=== PATIENT | male | born 1975 | race Caucasian/White ===

== ENCOUNTER 2020-07-15 02:19 | Inpatient (IN) | payer OTHER ==
[~2020-07-15] VITALS: Ht 177.8 cm; Wt 97.5 kg
[2020-07-15 04:29] LABS: Basophils # (auto) 0 10 ^3/uL (0-0.2); Basophils % (auto) 0.1 % (0.0-2.0); Eosinophils # (auto) 0 10 ^3/uL (0-0.8); Eosinophils % (auto) 0.1 % (0.0-7.0); Hematocrit 43.8 % (41.0-53.0); Hemoglobin 14.8 g/dL (13.5-17.5); Lymphocytes # (auto) 0.6 10 ^3/uL (0.4-5.4); Lymphocytes % (auto) 4.2 % (10.0-50.0); Mean Corpuscular Hemoglobin 28.3 pg (28.0-32.0); Mean Corpuscular Hgb Conc. 33.9 g/dL (32.0-36.0); Mean Corpuscular Volume 83.6 fL (80.0-100.0); Monocytes # (auto) 0.5 10 ^3/uL (0-1.3); Monocytes % (auto) 3.3 % (0.0-12.0); Neutrophils # (auto) 13.4 10 ^3/uL (1.6-8.6); Neutrophils % (auto) 92.3 % (37.0-80.0); Nucleated Red Blood Cells % 0.1 %; Platelet Count (auto) 439 10^3/uL (140-450); Red Blood Cells 5.24 10^6/uL (4.5-5.90); Red Cell Distribution Width 13.4 % (11.8-14.3); White Blood Cell 14.5 10^3/uL (4.4-10.8)
[2020-07-15 04:52] LABS: Albumin 2.8 g/dL (3.4-5.0); Calcium 9.1 mg/dL (8.5-10.1)
[2020-07-15 04:55] LABS: INR 1.1 (0.9-1.15); Partial Thromboplastin Time 27.8 sec (23.0-31.2); Potassium 2.9 mmol/L (3.5-5.1)
[2020-07-15 04:57] LABS: BUN/Creatinine Ratio 14.3; Bilirubin, Total 0.8 mg/dL (0.2-1.0); Total Protein 7.7 g/dL (6.4-8.2)
[2020-07-15] MEDS ORDERED: DOXYCYCLINE 100MG/250ML 250 ML IV ONE (07:45)
[2020-07-15] MEDS ORDERED: DexAMETHasone SOD PHOS 10MG/1ML VIAL INJ IV ONE (07:45)
[2020-07-15] MEDS ORDERED: POTASSIUM CHL 20MEQ/100ML 100 ML IV SCH (07:45)
[2020-07-15] MEDS ORDERED: POTASSIUM EFFERVESENT TAB 25 MEQ PO ONE (08:15)
[2020-07-15] MEDS ORDERED: MORPHINE SULF INJ 2 MG/ML SYRINGE 1ML IV PRN (09:00)
[2020-07-15] MEDS ORDERED: ACETAMINOPHEN 500 MG TAB PO PRN (09:00)
[2020-07-15] MEDS ORDERED: REMDESIVIR PER PHARMACY 0 ML IV SCH (09:00)
[2020-07-15] MEDS ORDERED: ALBUTEROL SULF HFA 90MCG INH 200DOSE IN PRN (09:00)
[2020-07-15] MEDS ORDERED: NITROGLYCERIN 0.4 MG SL TAB SL PRN (09:00)
[2020-07-15] MEDS ORDERED: DEXTROSE (50%) 50ML SYRG IV PRN (09:30)
[2020-07-15] MEDS ORDERED: traMADol HCL 50 MG TAB PO PRN (09:30)
[2020-07-15] MEDS ORDERED: PROMETHAZINE HCL 25 MG/ML 1ML IV PRN (09:30)
[2020-07-15] MEDS ORDERED: levoFLOXacin 500MG 100 ML IV SCH (10:00)
[2020-07-15] MEDS ORDERED: ENOXAPARIN SOD 40 MG/0.4 ML SYRINGE SC SCH (10:00)
[2020-07-15] MEDS ORDERED: ASCORBIC ACID 1,000 MG TAB PO SCH (10:00)
[2020-07-15] MEDS ORDERED: CHOLECALCIFEROL (VITD3) 2,000 UNIT CAP PO SCH (10:00)
[2020-07-15] MEDS ORDERED: ZINC SULFATE 220mg CAP or TAB PO SCH (10:00)
[2020-07-15] MEDS ORDERED: DexAMETHasone SOD PHOS 10MG/1ML VIAL INJ IV SCH (10:00)
[2020-07-15] MEDS: BUDESONIDE (INHALATION) 180 MCG IH IN SCH ×2 (10:00→19:16)
[2020-07-15] MEDS ORDERED: AZIT250T8 PO (11:26)
[2020-07-15] MEDS: ACCU-CHEK COMFORT CURVE STRIP VI SCH ×2 (11:34→17:29)
[2020-07-15] MEDS ORDERED: REMDESIVIR 200 MG in NS 210ml LOADING DOSE ADULT IV ONE (17:00)
[2020-07-15 20:02] VITALS: BP 114/69
[2020-07-16] MEDS ORDERED: REMDESIVIR 100 MG in SODIUM CHL 0.9% 250 ML IV SCH (15:00)
== END 2020-07-15 22:14 | disposition home or self-care (01) | DRG 177 ==
LOC: ER 02:25 → TELE 02:26
PROVIDERS: ADMIT Internal Medicine; ATTEND Internal Medicine
PROC: XW033E5 Introduction of Remdesivir Anti-infective into Peripheral Vein, Percutaneous Approach, New Technology Group 5 (ICD-10-PCS; principal; 2020-07-15)
DX: U07.1 COVID-19 (principal); J12.89 Other viral pneumonia; E66.9 Obesity, unspecified; E87.6 Hypokalemia; J45.909 Unspecified asthma, uncomplicated; R09.02 Hypoxemia; R06.03 Acute respiratory distress; R73.9 Hyperglycemia, unspecified; Z68.30 Body mass index [BMI] 30.0-30.9, adult
CPT/HCPCS: 36415; 71045; 80053; 82962; 83036; 83880; 85025; 85379; 85610; 85730; 94640; 96365; 96366; 96372; G0378; J1100; J1956; J3490

== ENCOUNTER 2020-09-11 08:43 | Inpatient (IN) | payer OTHER ==
[~2020-09-11] VITALS: Ht 177.8 cm; Wt 93.2 kg
[~2020-09-11 08:43] MED LIST: AZIT250T8 PO
[2020-09-11 09:21] LABS: Urine Bacteria NONE SEEN /hpf (None Seen); Urine Blood Negative /uL (Negative); Urine Specific Gravity 1.025 (1.001-1.035); Urine WBC <1 /hpf (0 - 3)
[2020-09-11] MEDS ORDERED: SODIUM CHLORIDE 0.9% 1,000 ML IV ONE ×2 (09:45)
[2020-09-11] MEDS ORDERED: metroNIDAZOLE 500MG/100ML 100 ML IV ONE (10:00)
[2020-09-11] MEDS ORDERED: cefTRIAXone 1GM/50ML D5W 50 ML IV ONE (10:00)
[2020-09-11 10:20] LABS: Basophils # (auto) 0 10 ^3/uL (0-0.2); Basophils % (auto) 0.6 % (0.0-2.0); Eosinophils # (auto) 0.2 10 ^3/uL (0-0.8); Eosinophils % (auto) 3.4 % (0.0-7.0); Hematocrit 41.5 % (41.0-53.0); Hemoglobin 14.3 g/dL (13.5-17.5); Lymphocytes # (auto) 1.5 10 ^3/uL (0.4-5.4); Lymphocytes % (auto) 25.1 % (10.0-50.0); Mean Corpuscular Hemoglobin 28.9 pg (28.0-32.0); Mean Corpuscular Hgb Conc. 34.4 g/dL (32.0-36.0); Monocytes # (auto) 0.5 10 ^3/uL (0-1.3); Neutrophils # (auto) 3.8 10 ^3/uL (1.6-8.6); Neutrophils % (auto) 62.9 % (37.0-80.0); Nucleated Red Blood Cells % 0.1 %; Platelet Count (auto) 368 10^3/uL (140-450); Red Blood Cells 4.94 10^6/uL (4.5-5.90); Red Cell Distribution Width 14.5 % (11.8-14.3); White Blood Cell 6.1 10^3/uL (4.4-10.8)
[2020-09-11 13:01] LABS: Potassium 4.1 mmol/L (3.5-5.1)
[2020-09-11 13:12] LABS: Albumin 3.8 g/dL (3.4-5.0); Calcium 9.6 mg/dL (8.5-10.1)
[2020-09-11 13:14] LABS: Bilirubin, Total 0.6 mg/dL (0.2-1.0)
[2020-09-11] MEDS ORDERED: ONDANSETRON HCL 4 MG/2 ML VIAL IV PRN (15:45)
[2020-09-11] MEDS ORDERED: NITROGLYCERIN 0.4 MG SL TAB SL PRN (15:45)
[2020-09-11] MEDS: SODIUM CHLORIDE 0.9% 1,000 ML IV SCH (15:45)
[2020-09-11] MEDS ORDERED: HYDROmorphone HCL 2 MG/ML VL IV PRN (15:45)
[2020-09-11] MEDS ORDERED: MORPHINE SULF INJ 2 MG/ML SYRINGE 1ML IV PRN (15:45)
[2020-09-11] MEDS ORDERED: VANCOMYCIN PER PHARMACY 0 MG IV SCH (15:45)
[2020-09-11] MEDS ORDERED: VANCOMYCIN 1GM/250ML 250 ML IV SCH (18:00)
[2020-09-11] MEDS: PIPERACILLIN-TAZOB 3.375GM 100 ML IV SCH (18:42)
[2020-09-12] MEDS: SODIUM CHLORIDE 0.9% 1,000 ML IV SCH ×2 (01:45→11:50)
[2020-09-12] MEDS: VANCOMYCIN 1GM/250ML 250 ML IV SCH ×3 (06:00→23:17)
[2020-09-12] MEDS: PIPERACILLIN-TAZOB 3.375GM 100 ML IV SCH ×4 (06:00→18:37)
[2020-09-12 13:00] VITALS: BP 122/76
[2020-09-12 13:27] LABS: Basophils # (auto) 0 10 ^3/uL (0-0.2); Basophils % (auto) 0.4 % (0.0-2.0); Eosinophils # (auto) 0.3 10 ^3/uL (0-0.8); Eosinophils % (auto) 3.8 % (0.0-7.0); Hematocrit 40.5 % (41.0-53.0); Hemoglobin 13.6 g/dL (13.5-17.5); Lymphocytes # (auto) 1.1 10 ^3/uL (0.4-5.4); Lymphocytes % (auto) 13.5 % (10.0-50.0); Mean Corpuscular Hemoglobin 28.6 pg (28.0-32.0); Mean Corpuscular Hgb Conc. 33.7 g/dL (32.0-36.0); Mean Corpuscular Volume 84.9 fL (80.0-100.0); Monocytes # (auto) 0.6 10 ^3/uL (0-1.3); Monocytes % (auto) 7.2 % (0.0-12.0); Neutrophils # (auto) 6.2 10 ^3/uL (1.6-8.6); Neutrophils % (auto) 75.1 % (37.0-80.0); Platelet Count (auto) 352 10^3/uL (140-450); Red Blood Cells 4.77 10^6/uL (4.5-5.90); Red Cell Distribution Width 14.4 % (11.8-14.3); White Blood Cell 8.2 10^3/uL (4.4-10.8)
[2020-09-12 13:36] LABS: Albumin 3.6 g/dL (3.4-5.0); Calcium 8.6 mg/dL (8.5-10.1); Potassium 3.9 mmol/L (3.5-5.1)
[2020-09-12 13:39] LABS: BUN/Creatinine Ratio 10.4; Bilirubin, Total 0.8 mg/dL (0.2-1.0); Total Protein 7.5 g/dL (6.4-8.2)
[2020-09-12] MEDS ORDERED: ALBU108A5 PO (15:10)
[2020-09-12 17:00] VITALS: BP 127/67
[2020-09-12 20:00] VITALS: BP 115/75
[2020-09-12 22:00] VITALS: BP 115/75
[2020-09-13] MEDS: PIPERACILLIN-TAZOB 3.375GM 100 ML IV SCH ×5 (00:16→23:45)
[2020-09-13] MEDS: SODIUM CHLORIDE 0.9% 1,000 ML IV SCH ×3 (04:00→17:45)
[2020-09-13 05:00] VITALS: BP 113/75
[2020-09-13] MEDS: VANCOMYCIN 1GM/250ML 250 ML IV SCH (05:45)
[2020-09-13 09:00] VITALS: BP 116/70
[2020-09-13 09:58] VITALS: BP 116/70
[2020-09-13] MEDS ORDERED: OMNIPAQUE ORAL SOLN 500ml 12mg/ml PO ONE (10:41)
[2020-09-13] MEDS ORDERED: IOHEXOL 300 MG/ML 100ML BOTTLE IJ ONE (10:41)
[2020-09-13] MEDS ORDERED: diphenhdrAMINE HCL 50 MG/1 ML VL IV PRN (11:15)
[2020-09-13 13:00] VITALS: BP 123/81
[2020-09-13 17:20] VITALS: BP 125/83
[2020-09-13 22:00] VITALS: BP 122/72
[2020-09-14 05:00] VITALS: BP 120/68
[2020-09-14] MEDS: PIPERACILLIN-TAZOB 3.375GM 100 ML IV SCH ×3 (05:17→18:09)
[2020-09-14 09:00] VITALS: BP 137/72
[2020-09-14] MEDS ORDERED: TPN PER PHARMACY 0 ML IV SCH (09:30)
[2020-09-14 10:21] LABS: Basophils # (auto) 0 10 ^3/uL (0-0.2); Basophils % (auto) 0.2 % (0.0-2.0); Eosinophils # (auto) 0.3 10 ^3/uL (0-0.8); Eosinophils % (auto) 3.9 % (0.0-7.0); Hematocrit 40.1 % (41.0-53.0); Hemoglobin 13.8 g/dL (13.5-17.5); Lymphocytes # (auto) 1.3 10 ^3/uL (0.4-5.4); Lymphocytes % (auto) 15.1 % (10.0-50.0); Mean Corpuscular Hemoglobin 29.2 pg (28.0-32.0); Mean Corpuscular Hgb Conc. 34.4 g/dL (32.0-36.0); Mean Corpuscular Volume 84.9 fL (80.0-100.0); Monocytes # (auto) 0.7 10 ^3/uL (0-1.3); Neutrophils # (auto) 6.1 10 ^3/uL (1.6-8.6); Neutrophils % (auto) 72.8 % (37.0-80.0); Nucleated Red Blood Cells % 0.1 %; Platelet Count (auto) 354 10^3/uL (140-450); Red Blood Cells 4.72 10^6/uL (4.5-5.90); Red Cell Distribution Width 14.6 % (11.8-14.3); White Blood Cell 8.4 10^3/uL (4.4-10.8)
[2020-09-14 10:34] LABS: INR 1.08 (0.9-1.15); Partial Thromboplastin Time 26.1 sec (23.0-31.2)
[2020-09-14 10:46] LABS: Albumin 3.5 g/dL (3.4-5.0); Calcium 8.9 mg/dL (8.5-10.1); Magnesium 2.3 mg/dL (1.6-2.6); Potassium 3.6 mmol/L (3.5-5.1)
[2020-09-14 10:50] LABS: BUN/Creatinine Ratio 11.9; Bilirubin, Total 0.9 mg/dL (0.2-1.0); Phosphorus 3.3 mg/dL (2.5-4.90); Pre Albumin 23.6 mg/dL (20.0-40.0); Total Protein 7.7 g/dL (6.4-8.2)
[2020-09-14] MEDS: ACCU-CHEK COMFORT CURVE STRIP VI SCH ×2 (12:00→18:00)
[2020-09-14] MEDS ORDERED: DEXTROSE (50%) 50ML SYRG IV SCH (12:00)
[2020-09-14] MEDS: SODIUM CHLORIDE 0.9% 1,000 ML IV SCH ×3 (12:00→13:45)
[2020-09-14] MEDS: InsuLIN REG 1unit/0.01ml Soln (100units/ml) SC SCH ×2 (12:00→18:00)
[2020-09-14 13:00] VITALS: BP 123/68
[2020-09-14 17:00] VITALS: BP 137/77
[2020-09-14] MEDS ORDERED: PPN PER PHARMACY IV NR ×8 (20:00)
[2020-09-14 23:09] VITALS: BP 130/77
[2020-09-15] MEDS: ACCU-CHEK COMFORT CURVE STRIP VI SCH ×3 (00:05→11:35)
[2020-09-15 05:26] VITALS: BP 111/63
[2020-09-15] MEDS: PIPERACILLIN-TAZOB 3.375GM 100 ML IV SCH ×3 (06:15→11:34)
[2020-09-15] MEDS: InsuLIN REG 1unit/0.01ml Soln (100units/ml) SC SCH ×3 (06:15→11:34)
[2020-09-15 06:18] LABS: Basophils # (auto) 0 10 ^3/uL (0-0.2); Basophils % (auto) 0.4 % (0.0-2.0); Eosinophils # (auto) 0.3 10 ^3/uL (0-0.8); Hemoglobin 13.7 g/dL (13.5-17.5); Lymphocytes # (auto) 1.1 10 ^3/uL (0.4-5.4); Lymphocytes % (auto) 13.6 % (10.0-50.0); Mean Corpuscular Hemoglobin 29.3 pg (28.0-32.0); Mean Corpuscular Hgb Conc. 34.2 g/dL (32.0-36.0); Mean Corpuscular Volume 85.7 fL (80.0-100.0); Monocytes # (auto) 0.7 10 ^3/uL (0-1.3); Monocytes % (auto) 8.6 % (0.0-12.0); Neutrophils # (auto) 5.7 10 ^3/uL (1.6-8.6); Neutrophils % (auto) 73.4 % (37.0-80.0); Nucleated Red Blood Cells % 0.1 %; Platelet Count (auto) 316 10^3/uL (140-450); Red Blood Cells 4.67 10^6/uL (4.5-5.90); Red Cell Distribution Width 14.6 % (11.8-14.3); White Blood Cell 7.8 10^3/uL (4.4-10.8)
[2020-09-15 06:29] LABS: Albumin 3.4 g/dL (3.4-5.0); Calcium 8.6 mg/dL (8.5-10.1); Magnesium 2.4 mg/dL (1.6-2.6); Potassium 3.7 mmol/L (3.5-5.1)
[2020-09-15 06:33] LABS: BUN/Creatinine Ratio 15.3; Bilirubin, Total 0.9 mg/dL (0.2-1.0); Phosphorus 2.8 mg/dL (2.5-4.90); Total Protein 7.5 g/dL (6.4-8.2)
[2020-09-15 09:00] VITALS: BP 128/74
[2020-09-15] MEDS: SODIUM CHLORIDE 0.9% 1,000 ML IV SCH (09:45)
[2020-09-15 13:00] VITALS: BP 133/88
[2020-09-15] MEDS ORDERED: LIDOCAINE 1% (LOCAL ANESTH.) PF 5ml SDV ID ONE (14:30)
[2020-09-15 17:00] VITALS: BP 134/72
[2020-09-15 17:29] VITALS: BP 134/72
[2020-09-15] MEDS ORDERED: PPN PER PHARMACY IV NR ×10 (20:00)
[2020-09-15] MEDS ORDERED: SODIUM CHLOR 0.9% PF (SALINE LOCK) 10ML VIAL/SYR IV SCH (22:00)
== END 2020-09-15 20:57 | disposition home health service (06) | DRG 392 ==
LOC: ER 08:43 → OVERFLOW 15:51 → DOU IN ADS 09-12 14:16 → EAST 09-12 15:13 → DOU IN ADS 09-12 23:53 → EAST 09-15 19:17
PROVIDERS: ADMIT Internal Medicine; ATTEND Internal Medicine
PROC: 3E0336Z Introduction of Nutritional Substance into Peripheral Vein, Percutaneous Approach (ICD-10-PCS; 2020-09-14)
PROC: 02HV33Z Insertion of Infusion Device into Superior Vena Cava, Percutaneous Approach (ICD-10-PCS; principal; 2020-09-15)
DX: K57.20 Diverticulitis of large intestine with perforation and abscess without bleeding (principal); Z20.822 Contact with and (suspected) exposure to COVID-19
CPT/HCPCS: 36415; 36569; 71046; 74176; 74177; 80053; 80202; 81001; 82040; 82962; 83605; 83735; 84100; 84478; 84484; 85025; 85610; 85730; 87040; 87426; 96365; 96375; G0378; J0696; J2543; J3490

== ENCOUNTER 2020-09-17 10:46 | Inpatient (IN) | payer OTHER ==
[~2020-09-17] VITALS: Ht 177.8 cm; Wt 92.0 kg
[~2020-09-17 10:46] MED LIST changes: +ALBU108A5 PO; -AZIT250T8 PO
[2020-09-17] MEDS ORDERED: MORPHINE SULFATE 4 MG/ML SYR/VIAL IV ONE ×2 (11:00→16:00)
[2020-09-17] MEDS ORDERED: SODIUM CHLORIDE 0.9% 1,000 ML IV ONE ×3 (11:00→16:45)
[2020-09-17] MEDS ORDERED: ONDANSETRON HCL 4 MG/2 ML VIAL IV ONE ×2 (11:00→16:00)
[2020-09-17] MEDS ORDERED: diphenhdrAMINE HCL 50 MG/1 ML VL ONE (11:30)
[2020-09-17] MEDS ORDERED: PIPERACILLIN-TAZOB 3.375GM 100 ML IV ONE (11:30)
[2020-09-17] MEDS ORDERED: diphenhdrAMINE HCL 50 MG/1 ML VL IV ONE (11:30)
[2020-09-17] MEDS ORDERED: IOHEXOL 300 MG/ML 100ML BOTTLE IJ ONE (11:33)
[2020-09-17 11:53] LABS: Hematocrit 40.1 % (41.0-53.0); Hemoglobin 13.8 g/dL (13.5-17.5); Mean Corpuscular Hemoglobin 31.7 pg (28.0-32.0); Mean Corpuscular Hgb Conc. 34.3 g/dL (32.0-36.0); Mean Corpuscular Volume 92.3 fL (80.0-100.0); Platelet Count (auto) 326 10^3/uL (140-450); Red Blood Cells 4.35 10^6/uL (4.5-5.90); Red Cell Distribution Width 15.5 % (11.8-14.3); White Blood Cell 17.9 10^3/uL (4.4-10.8)
[2020-09-17 11:58] LABS: Band Neutrophils % (manual) 0; Basophils % (manual) 0 (0.0-2.0); Blast Cells 0; Metamyelocytes % 0; Myelocytes % 0; Promyelocytes % 0; Reactive Lymphocytes 0
[2020-09-17 12:13] LABS: INR 1.21 (0.9-1.15); Partial Thromboplastin Time 24.3 sec (23.0-31.2)
[2020-09-17 12:25] LABS: Eosinophils % (manual) 2 (0-7); Lymphocytes % (manual) 2 (10.0-50.0); Monocytes % (manual) 2 (0-12)
[2020-09-17 13:47] LABS: Total Protein 7.5 g/dL (6.4-8.2)
[2020-09-17 14:14] LABS: Anion Gap 10 (5-15); Carbon Dioxide 20 mmol/L (21-32); Chloride 115 mmol/L (98-107); Potassium 3.3 mmol/L (3.5-5.1); Sodium 145 mmol/L (136-145)
[2020-09-17 14:15] LABS: Alanine Aminotransferase 26 U/L (16-61); Albumin 3.5 g/dL (3.4-5.0); Alkaline Phosphatase 68 U/L (45-117); Aspartate Aminotransferase 15 U/L (15-37); BUN/Creatinine Ratio 18.9; Bilirubin, Total 0.8 mg/dL (0.2-1.0); Blood Urea Nitrogen 17 mg/dL (7-18); Calcium 8.4 mg/dL (8.5-10.1); GFR African American 118 mL/min; GFR Non-African American 98 mL/min; Glucose 161 mg/dL (74-106)
[2020-09-17] MEDS ORDERED: NITROGLYCERIN 0.4 MG SL TAB SL PRN (16:45)
[2020-09-17] MEDS ORDERED: MORPHINE SULF INJ 2 MG/ML SYRINGE 1ML IV PRN (16:45)
[2020-09-17 16:47] LABS: Urine Bacteria FEW /hpf (None Seen); Urine Blood Negative /uL (Negative); Urine Mucus FEW (None Seen); Urine Specific Gravity 1.047 (1.001-1.035); Urine WBC 3 /hpf (0 - 3)
[2020-09-17] MEDS ORDERED: ONDANSETRON HCL 4 MG/2 ML VIAL IV SCH (18:00)
[2020-09-17] MEDS: PIPERACILLIN-TAZOB 3.375GM 100 ML IV SCH (19:05)
[2020-09-17 22:00] VITALS: BP 124/79
[2020-09-18] VITALS (7 sets, daily range): BP systolic 108–118; BP diastolic 69–79
[2020-09-18] MEDS: PIPERACILLIN-TAZOB 3.375GM 100 ML IV SCH ×4 (00:10→17:00)
[2020-09-18] MEDS ORDERED: MULT-1018 PO (02:16)
[2020-09-18] MEDS ORDERED: LACTCAP35 OR (02:16)
[2020-09-18 07:20] LABS: Basophils # (auto) 0 10 ^3/uL (0-0.2); Basophils % (auto) 0.1 % (0.0-2.0); Eosinophils # (auto) 0.2 10 ^3/uL (0-0.8); Eosinophils % (auto) 1.6 % (0.0-7.0); Hematocrit 38.7 % (41.0-53.0); Lymphocytes # (auto) 0.8 10 ^3/uL (0.4-5.4); Lymphocytes % (auto) 5.5 % (10.0-50.0); Mean Corpuscular Hemoglobin 28.7 pg (28.0-32.0); Mean Corpuscular Hgb Conc. 33.5 g/dL (32.0-36.0); Mean Corpuscular Volume 85.8 fL (80.0-100.0); Monocytes # (auto) 0.9 10 ^3/uL (0-1.3); Monocytes % (auto) 5.8 % (0.0-12.0); Neutrophils # (auto) 12.9 10 ^3/uL (1.6-8.6); Platelet Count (auto) 282 10^3/uL (140-450); Red Blood Cells 4.51 10^6/uL (4.5-5.90); Red Cell Distribution Width 15.1 % (11.8-14.3); White Blood Cell 14.9 10^3/uL (4.4-10.8)
[2020-09-18 07:42] LABS: Albumin 3.2 g/dL (3.4-5.0); BUN/Creatinine Ratio 12.2; Calcium 8.9 mg/dL (8.5-10.1); Potassium 3.5 mmol/L (3.5-5.1)
[2020-09-18 07:56] LABS: Bilirubin, Total 1.3 mg/dL (0.2-1.0)
[2020-09-18] MEDS ORDERED: OMNIPAQUE ORAL SOLN 500ml 12mg/ml PO ONE (09:19)
[2020-09-18] MEDS ORDERED: diphenhdrAMINE HCL 50 MG/1 ML VL IV ONE (10:00)
[2020-09-18] MEDS: MORPHINE SULFATE 4 MG/ML SYR/VIAL IV PRN ×2 (11:36→17:00)
[2020-09-18] MEDS ORDERED: TPN PER PHARMACY 0 ML IV SCH (13:45)
[2020-09-18 16:17] LABS: Magnesium 1.8 mg/dL (1.6-2.6); Phosphorus 3.5 mg/dL (2.5-4.90)
[2020-09-18 16:21] LABS: Pre Albumin 19.9 mg/dL (20.0-40.0)
[2020-09-18] MEDS ORDERED: POTASSIUM CHL 20MEQ/100ML 100 ML IV ONE (17:30)
[2020-09-18] MEDS ORDERED: AMINO ACID INFUSION IN D10W 1,000 ML IV NR (20:00)
[2020-09-19] VITALS (7 sets, daily range): BP systolic 106–116; BP diastolic 68–72
[2020-09-19] MEDS ORDERED: DEXTROSE (50%) 50ML SYRG IV SCH
[2020-09-19] MEDS: PIPERACILLIN-TAZOB 3.375GM 100 ML IV SCH ×5 (00:10→23:37)
[2020-09-19] MEDS: MORPHINE SULFATE 4 MG/ML SYR/VIAL IV PRN ×4 (00:11→20:03)
[2020-09-19] MEDS: ACCU-CHEK COMFORT CURVE STRIP VI SCH ×5 (00:11→23:38)
[2020-09-19] MEDS: ONDANSETRON HCL 4 MG/2 ML VIAL IV PRN ×2 (00:12→20:02)
[2020-09-19] MEDS: InsuLIN REG 1unit/0.01ml Soln (100units/ml) SC SCH ×5 (06:00→23:37)
[2020-09-19 06:18] LABS: Basophils # (auto) 0.1 10 ^3/uL (0-0.2); Basophils % (auto) 0.4 % (0.0-2.0); Eosinophils # (auto) 0.5 10 ^3/uL (0-0.8); Eosinophils % (auto) 2.9 % (0.0-7.0); Hematocrit 39.7 % (41.0-53.0); Hemoglobin 13.1 g/dL (13.5-17.5); Lymphocytes % (auto) 6.3 % (10.0-50.0); Mean Corpuscular Hemoglobin 28.4 pg (28.0-32.0); Mean Corpuscular Hgb Conc. 33.1 g/dL (32.0-36.0); Mean Corpuscular Volume 85.9 fL (80.0-100.0); Monocytes # (auto) 1.1 10 ^3/uL (0-1.3); Monocytes % (auto) 6.8 % (0.0-12.0); Neutrophils % (auto) 83.6 % (37.0-80.0); Platelet Count (auto) 273 10^3/uL (140-450); Red Blood Cells 4.62 10^6/uL (4.5-5.90); White Blood Cell 15.6 10^3/uL (4.4-10.8)
[2020-09-19 06:39] LABS: Calcium 9.1 mg/dL (8.5-10.1); Potassium 3.3 mmol/L (3.5-5.1)
[2020-09-19 06:44] LABS: BUN/Creatinine Ratio 15.2; Phosphorus 2.9 mg/dL (2.5-4.90); Total Protein 7.1 g/dL (6.4-8.2)
[2020-09-19] MEDS ORDERED: POTASSIUM CHLORIDE 40 MEQ, LIDOCAINE 1% (LOCAL ANESTH.) 4 ML in SODIUM CHL 0.9% 250 ML IV ONE (07:30)
[2020-09-19] MEDS ORDERED: TPN PER PHARMACY IV NR ×8 (20:00)
[2020-09-20] MEDS: MORPHINE SULFATE 4 MG/ML SYR/VIAL IV PRN ×4 (02:07→21:48)
[2020-09-20] MEDS: ONDANSETRON HCL 4 MG/2 ML VIAL IV PRN ×3 (02:07→21:47)
[2020-09-20 05:10] VITALS: BP 106/67
[2020-09-20] MEDS: PIPERACILLIN-TAZOB 3.375GM 100 ML IV SCH ×3 (05:34→18:22)
[2020-09-20] MEDS: InsuLIN REG 1unit/0.01ml Soln (100units/ml) SC SCH ×3 (06:00→18:00)
[2020-09-20] MEDS: ACCU-CHEK COMFORT CURVE STRIP VI SCH ×3 (06:15→18:18)
[2020-09-20 07:06] LABS: Basophils # (auto) 0 10 ^3/uL (0-0.2); Basophils % (auto) 0.2 % (0.0-2.0); Eosinophils # (auto) 0.5 10 ^3/uL (0-0.8); Eosinophils % (auto) 4.8 % (0.0-7.0); Hematocrit 39.1 % (41.0-53.0); Hemoglobin 13.5 g/dL (13.5-17.5); Lymphocytes % (auto) 9.1 % (10.0-50.0); Mean Corpuscular Hemoglobin 29.5 pg (28.0-32.0); Mean Corpuscular Hgb Conc. 34.4 g/dL (32.0-36.0); Mean Corpuscular Volume 85.8 fL (80.0-100.0); Monocytes # (auto) 0.7 10 ^3/uL (0-1.3); Monocytes % (auto) 6.2 % (0.0-12.0); Neutrophils # (auto) 8.5 10 ^3/uL (1.6-8.6); Neutrophils % (auto) 79.7 % (37.0-80.0); Platelet Count (auto) 280 10^3/uL (140-450); Red Blood Cells 4.57 10^6/uL (4.5-5.90); Red Cell Distribution Width 14.6 % (11.8-14.3); White Blood Cell 10.7 10^3/uL (4.4-10.8)
[2020-09-20 07:29] LABS: Potassium 3.2 mmol/L (3.5-5.1)
[2020-09-20 07:44] LABS: Albumin 2.9 g/dL (3.4-5.0); BUN/Creatinine Ratio 13.5; Bilirubin, Total 0.8 mg/dL (0.2-1.0); Calcium 8.9 mg/dL (8.5-10.1); Total Protein 7.2 g/dL (6.4-8.2)
[2020-09-20 09:00] VITALS: BP 101/69
[2020-09-20 09:38] LABS: Phosphorus 3.8 mg/dL (2.5-4.90)
[2020-09-20] MEDS: POTASSIUM CHL 20MEQ/100ML 100 ML IV SCH ×2 (10:05→11:47)
[2020-09-20] MEDS ORDERED: GOLYTELY 4L KIT PO ONE (12:15)
[2020-09-20 13:00] VITALS: BP 102/71
[2020-09-20 17:00] VITALS: BP 108/69
[2020-09-20] MEDS: TPN PER PHARMACY IV NR ×8 (20:30)
[2020-09-20 22:00] VITALS: BP 108/63
[2020-09-21] MEDS: MORPHINE SULFATE 4 MG/ML SYR/VIAL IV PRN ×4 (03:40→22:25)
[2020-09-21] MEDS: ONDANSETRON HCL 4 MG/2 ML VIAL IV PRN ×4 (03:41→22:25)
[2020-09-21 05:00] VITALS: BP 103/63
[2020-09-21 05:49] LABS: Basophils # (auto) 0 10 ^3/uL (0-0.2); Basophils % (auto) 0.4 % (0.0-2.0); Eosinophils # (auto) 0.5 10 ^3/uL (0-0.8); Eosinophils % (auto) 5.7 % (0.0-7.0); Hematocrit 36.1 % (41.0-53.0); Hemoglobin 12.3 g/dL (13.5-17.5); Lymphocytes # (auto) 0.8 10 ^3/uL (0.4-5.4); Mean Corpuscular Hgb Conc. 34.2 g/dL (32.0-36.0); Mean Corpuscular Volume 84.9 fL (80.0-100.0); Monocytes # (auto) 0.6 10 ^3/uL (0-1.3); Monocytes % (auto) 7.2 % (0.0-12.0); Neutrophils # (auto) 6.3 10 ^3/uL (1.6-8.6); Neutrophils % (auto) 76.7 % (37.0-80.0); Nucleated Red Blood Cells % 0.1 %; Platelet Count (auto) 306 10^3/uL (140-450); Red Blood Cells 4.25 10^6/uL (4.5-5.90); Red Cell Distribution Width 14.2 % (11.8-14.3); White Blood Cell 8.2 10^3/uL (4.4-10.8)
[2020-09-21] MEDS: PIPERACILLIN-TAZOB 3.375GM 100 ML IV SCH ×4 (06:00→23:52)
[2020-09-21] MEDS: InsuLIN REG 1unit/0.01ml Soln (100units/ml) SC SCH ×5 (06:00→23:56)
[2020-09-21] MEDS: ACCU-CHEK COMFORT CURVE STRIP VI SCH ×5 (06:00→23:52)
[2020-09-21 06:05] LABS: Albumin 2.7 g/dL (3.4-5.0); Calcium 8.6 mg/dL (8.5-10.1); Potassium 3.3 mmol/L (3.5-5.1)
[2020-09-21 06:09] LABS: BUN/Creatinine Ratio 12.7; Bilirubin, Total 0.6 mg/dL (0.2-1.0); Phosphorus 3.9 mg/dL (2.5-4.90); Total Protein 6.8 g/dL (6.4-8.2)
[2020-09-21 08:30] VITALS: BP 101/62
[2020-09-21] MEDS: POTASSIUM CHL 20MEQ/100ML 100 ML IV SCH ×2 (10:01→13:29)
[2020-09-21 12:30] VITALS: BP 116/70
[2020-09-21 17:44] VITALS: BP 117/74
[2020-09-21] MEDS: TPN PER PHARMACY IV NR ×8 (19:45)
[2020-09-21] MEDS ORDERED: TPN PER PHARMACY IV NR ×9 (20:00)
[2020-09-21] MEDS ORDERED: PIPERACILLIN-TAZOB 3.375GM 100 ML IV SCH (20:00)
[2020-09-21 22:00] VITALS: BP 108/64
[2020-09-22 05:00] VITALS: BP 112/64
[2020-09-22] MEDS: PIPERACILLIN-TAZOB 3.375GM 100 ML IV SCH ×3 (05:43→18:00)
[2020-09-22] MEDS: ACCU-CHEK COMFORT CURVE STRIP VI SCH ×3 (05:50→18:00)
[2020-09-22] MEDS: InsuLIN REG 1unit/0.01ml Soln (100units/ml) SC SCH ×3 (05:50→18:00)
[2020-09-22] MEDS: MORPHINE SULFATE 4 MG/ML SYR/VIAL IV PRN ×3 (05:56→20:37)
[2020-09-22] MEDS: ONDANSETRON HCL 4 MG/2 ML VIAL IV PRN ×3 (05:56→20:37)
[2020-09-22 07:43] LABS: Basophils # (auto) 0 10 ^3/uL (0-0.2); Basophils % (auto) 0.4 % (0.0-2.0); Eosinophils # (auto) 0.3 10 ^3/uL (0-0.8); Eosinophils % (auto) 3.8 % (0.0-7.0); Hematocrit 38.5 % (41.0-53.0); Hemoglobin 13.1 g/dL (13.5-17.5); Lymphocytes # (auto) 0.6 10 ^3/uL (0.4-5.4); Mean Corpuscular Hemoglobin 28.7 pg (28.0-32.0); Mean Corpuscular Hgb Conc. 33.9 g/dL (32.0-36.0); Mean Corpuscular Volume 84.6 fL (80.0-100.0); Monocytes # (auto) 0.5 10 ^3/uL (0-1.3); Monocytes % (auto) 5.6 % (0.0-12.0); Neutrophils # (auto) 6.7 10 ^3/uL (1.6-8.6); Neutrophils % (auto) 82.2 % (37.0-80.0); Nucleated Red Blood Cells % 0.1 %; Platelet Count (auto) 371 10^3/uL (140-450); Red Blood Cells 4.55 10^6/uL (4.5-5.90); Red Cell Distribution Width 13.9 % (11.8-14.3); White Blood Cell 8.1 10^3/uL (4.4-10.8)
[2020-09-22 07:47] LABS: Albumin 2.9 g/dL (3.4-5.0); Calcium 8.8 mg/dL (8.5-10.1); Magnesium 2.3 mg/dL (1.6-2.6); Potassium 3.9 mmol/L (3.5-5.1)
[2020-09-22 07:50] LABS: BUN/Creatinine Ratio 11.4; Bilirubin, Total 0.6 mg/dL (0.2-1.0); Phosphorus 3.3 mg/dL (2.5-4.90); Total Protein 7.5 g/dL (6.4-8.2)
[2020-09-22 09:00] VITALS: BP 110/62
[2020-09-22 13:00] VITALS: BP 114/69
[2020-09-22 17:00] VITALS: BP 115/71
[2020-09-22] MEDS ORDERED: TPN PER PHARMACY IV NR ×10 (20:00)
[2020-09-23] VITALS (8 sets, daily range): BP systolic 110–143; BP diastolic 69–84
[2020-09-23] MEDS: ACCU-CHEK COMFORT CURVE STRIP VI SCH ×5 (00:27→23:45)
[2020-09-23] MEDS: PIPERACILLIN-TAZOB 3.375GM 100 ML IV SCH ×5 (00:27→23:45)
[2020-09-23] MEDS: MORPHINE SULFATE 4 MG/ML SYR/VIAL IV PRN ×2 (04:17→17:05)
[2020-09-23] MEDS: InsuLIN REG 1unit/0.01ml Soln (100units/ml) SC SCH ×5 (06:00→23:48)
[2020-09-23 07:17] LABS: Basophils # (auto) 0 10 ^3/uL (0-0.2); Basophils % (auto) 0.5 % (0.0-2.0); Eosinophils # (auto) 0.4 10 ^3/uL (0-0.8); Eosinophils % (auto) 4.2 % (0.0-7.0); Hematocrit 37.5 % (41.0-53.0); Hemoglobin 12.8 g/dL (13.5-17.5); Lymphocytes # (auto) 0.9 10 ^3/uL (0.4-5.4); Lymphocytes % (auto) 10.5 % (10.0-50.0); Mean Corpuscular Hemoglobin 28.9 pg (28.0-32.0); Monocytes # (auto) 0.6 10 ^3/uL (0-1.3); Monocytes % (auto) 6.9 % (0.0-12.0); Neutrophils # (auto) 6.8 10 ^3/uL (1.6-8.6); Neutrophils % (auto) 77.9 % (37.0-80.0); Nucleated Red Blood Cells % 0.1 %; Platelet Count (auto) 357 10^3/uL (140-450); Red Blood Cells 4.42 10^6/uL (4.5-5.90); Red Cell Distribution Width 14.3 % (11.8-14.3); White Blood Cell 8.7 10^3/uL (4.4-10.8)
[2020-09-23 07:34] LABS: INR 1.08 (0.9-1.15)
[2020-09-23 07:36] LABS: Albumin 2.9 g/dL (3.4-5.0); Calcium 8.7 mg/dL (8.5-10.1); Magnesium 2.4 mg/dL (1.6-2.6); Potassium 3.9 mmol/L (3.5-5.1)
[2020-09-23 07:41] LABS: BUN/Creatinine Ratio 13.4; Bilirubin, Total 0.6 mg/dL (0.2-1.0); Total Protein 7.5 g/dL (6.4-8.2)
[2020-09-23] MEDS ORDERED: HYDROmorphone HCL 2 MG/ML VL ONE (08:52)
[2020-09-23] MEDS ORDERED: fentaNYL CITRATE 5 ML ONE ×2 (08:52→12:39)
[2020-09-23] MEDS ORDERED: fentaNYL CITRATE 100 MCG/2 ML VL ONE (08:52)
[2020-09-23] MEDS ORDERED: ONDANSETRON HCL 4 MG/2 ML VIAL ONE (08:53)
[2020-09-23] MEDS ORDERED: PROPOFOL 10 MG/ML 20 ML IV ONE (08:53)
[2020-09-23] MEDS ORDERED: MIDAZOLAM HCL 1MG/1ML-2 ML VIAL ONE (08:53)
[2020-09-23] MEDS ORDERED: SODIUM CHLORIDE LOCK 30 ML ONE (08:53)
[2020-09-23] MEDS ORDERED: GLYCOPYRROLATE 0.2 MG/ML 1ML VIAL ONE (08:53)
[2020-09-23] MEDS ORDERED: ROCURONIUM 10MG/ML 10ML VIAL IV ONE (08:53)
[2020-09-23] MEDS ORDERED: NEOSTIGMINE 1 MG/ML INJ (10mg/10ML VIAL) ONE (08:53)
[2020-09-23] MEDS ORDERED: ceFAZolin 1GM/50ML 50 ML IV ONE (11:04)
[2020-09-23] MEDS ORDERED: HYDROmorphone HCL 2 MG/ML VL IV PRN (14:00)
[2020-09-23] MEDS ORDERED: MORPHINE SULFATE 4 MG/ML SYR/VIAL IV PRN (14:00)
[2020-09-23] MEDS ORDERED: METOCLOPRAMIDE HCL 5MG/ml INJ 2ml VIAL IV PRN (14:00)
[2020-09-23] MEDS ORDERED: TPN PER PHARMACY IV NR ×10 (20:00)
[2020-09-23] MEDS: HYDROmorphone HCL 2 MG/ML VL IV PRN (21:14)
[2020-09-24] MEDS: HYDROmorphone HCL 2 MG/ML VL IV PRN ×4 (03:24→21:44)
[2020-09-24 05:00] VITALS: BP 126/79
[2020-09-24] MEDS: ACCU-CHEK COMFORT CURVE STRIP VI SCH ×4 (06:00→23:47)
[2020-09-24] MEDS: PIPERACILLIN-TAZOB 3.375GM 100 ML IV SCH ×4 (06:33→23:47)
[2020-09-24] MEDS: InsuLIN REG 1unit/0.01ml Soln (100units/ml) SC SCH ×4 (06:36→23:50)
[2020-09-24 07:12] LABS: Basophils # (auto) 0 10 ^3/uL (0-0.2); Basophils % (auto) 0.2 % (0.0-2.0); Eosinophils # (auto) 0.1 10 ^3/uL (0-0.8); Eosinophils % (auto) 0.4 % (0.0-7.0); Hematocrit 41.2 % (41.0-53.0); Hemoglobin 13.6 g/dL (13.5-17.5); Lymphocytes # (auto) 0.6 10 ^3/uL (0.4-5.4); Lymphocytes % (auto) 4.1 % (10.0-50.0); Mean Corpuscular Hemoglobin 28.2 pg (28.0-32.0); Mean Corpuscular Volume 85.4 fL (80.0-100.0); Monocytes # (auto) 1.2 10 ^3/uL (0-1.3); Monocytes % (auto) 7.9 % (0.0-12.0); Neutrophils # (auto) 13.7 10 ^3/uL (1.6-8.6); Neutrophils % (auto) 87.4 % (37.0-80.0); Platelet Count (auto) 433 10^3/uL (140-450); Red Blood Cells 4.82 10^6/uL (4.5-5.90); Red Cell Distribution Width 14.3 % (11.8-14.3); White Blood Cell 15.6 10^3/uL (4.4-10.8)
[2020-09-24 07:42] LABS: Albumin 2.5 g/dL (3.4-5.0); Calcium 8.7 mg/dL (8.5-10.1); Magnesium 2.4 mg/dL (1.6-2.6); Potassium 4.4 mmol/L (3.5-5.1)
[2020-09-24 07:46] LABS: BUN/Creatinine Ratio 19.4; Bilirubin, Total 0.6 mg/dL (0.2-1.0); Phosphorus 2.6 mg/dL (2.5-4.90); Total Protein 6.9 g/dL (6.4-8.2)
[2020-09-24 09:00] VITALS: BP 126/79
[2020-09-24] MEDS: ONDANSETRON HCL 4 MG/2 ML VIAL IV PRN ×3 (09:26→21:53)
[2020-09-24] MEDS: KETOROLAC TROMETH 30 MG/ML 1ML VIAL IV PRN ×2 (12:29→18:33)
[2020-09-24 13:00] VITALS: BP 132/80
[2020-09-24 17:00] VITALS: BP 130/70
[2020-09-24] MEDS ORDERED: TPN PER PHARMACY IV NR ×9 (20:00)
[2020-09-24 22:00] VITALS: BP 116/68
[2020-09-25] MEDS: KETOROLAC TROMETH 30 MG/ML 1ML VIAL IV PRN ×4 (00:42→20:16)
[2020-09-25] MEDS: HYDROmorphone HCL 2 MG/ML VL IV PRN ×4 (03:50→22:45)
[2020-09-25] MEDS: ONDANSETRON HCL 4 MG/2 ML VIAL IV PRN ×4 (04:03→22:45)
[2020-09-25 05:00] VITALS: BP 110/59
[2020-09-25 05:14] LABS: Basophils # (auto) 0.1 10 ^3/uL (0-0.2); Basophils % (auto) 0.7 % (0.0-2.0); Eosinophils # (auto) 0.4 10 ^3/uL (0-0.8); Eosinophils % (auto) 3.2 % (0.0-7.0); Hematocrit 37.5 % (41.0-53.0); Hemoglobin 12.7 g/dL (13.5-17.5); Lymphocytes # (auto) 0.9 10 ^3/uL (0.4-5.4); Lymphocytes % (auto) 6.7 % (10.0-50.0); Mean Corpuscular Hemoglobin 28.8 pg (28.0-32.0); Mean Corpuscular Hgb Conc. 33.9 g/dL (32.0-36.0); Mean Corpuscular Volume 85.1 fL (80.0-100.0); Monocytes # (auto) 1.2 10 ^3/uL (0-1.3); Monocytes % (auto) 9.4 % (0.0-12.0); Neutrophils # (auto) 10.6 10 ^3/uL (1.6-8.6); Platelet Count (auto) 382 10^3/uL (140-450); Red Cell Distribution Width 14.3 % (11.8-14.3); White Blood Cell 13.3 10^3/uL (4.4-10.8)
[2020-09-25 05:34] LABS: Albumin 2.4 g/dL (3.4-5.0); Calcium 8.7 mg/dL (8.5-10.1); Magnesium 2.3 mg/dL (1.6-2.6)
[2020-09-25 05:39] LABS: BUN/Creatinine Ratio 28.2; Bilirubin, Total 0.6 mg/dL (0.2-1.0); Phosphorus 4.1 mg/dL (2.5-4.90); Pre Albumin 13.9 mg/dL (20.0-40.0); Total Protein 6.8 g/dL (6.4-8.2)
[2020-09-25] MEDS: ACCU-CHEK COMFORT CURVE STRIP VI SCH ×3 (06:00→17:35)
[2020-09-25] MEDS: PIPERACILLIN-TAZOB 3.375GM 100 ML IV SCH ×3 (06:58→17:35)
[2020-09-25] MEDS: InsuLIN REG 1unit/0.01ml Soln (100units/ml) SC SCH ×3 (07:00→18:39)
[2020-09-25 08:40] VITALS: BP 102/68
[2020-09-25 13:00] VITALS: BP 114/65
[2020-09-25 16:56] VITALS: BP 116/72
[2020-09-25] MEDS ORDERED: TPN PER PHARMACY IV NR ×7 (20:00)
[2020-09-25 22:00] VITALS: BP 115/68
[2020-09-26] MEDS: ACCU-CHEK COMFORT CURVE STRIP VI SCH ×4 (00:30→18:02)
[2020-09-26] MEDS: PIPERACILLIN-TAZOB 3.375GM 100 ML IV SCH ×4 (00:30→17:53)
[2020-09-26] MEDS: InsuLIN REG 1unit/0.01ml Soln (100units/ml) SC SCH ×4 (00:45→18:00)
[2020-09-26] MEDS: KETOROLAC TROMETH 30 MG/ML 1ML VIAL IV PRN ×4 (02:23→21:35)
[2020-09-26 05:00] VITALS: BP 114/65
[2020-09-26] MEDS: HYDROmorphone HCL 2 MG/ML VL IV PRN ×3 (05:09→17:59)
[2020-09-26] MEDS: ONDANSETRON HCL 4 MG/2 ML VIAL IV PRN ×3 (05:09→18:05)
[2020-09-26 06:25] LABS: Basophils # (auto) 0 10 ^3/uL (0-0.2); Basophils % (auto) 0.3 % (0.0-2.0); Eosinophils # (auto) 0.5 10 ^3/uL (0-0.8); Eosinophils % (auto) 5.1 % (0.0-7.0); Hemoglobin 11.9 g/dL (13.5-17.5); Lymphocytes # (auto) 0.9 10 ^3/uL (0.4-5.4); Lymphocytes % (auto) 9.6 % (10.0-50.0); Mean Corpuscular Hemoglobin 28.9 pg (28.0-32.0); Mean Corpuscular Volume 85.1 fL (80.0-100.0); Monocytes % (auto) 10.7 % (0.0-12.0); Neutrophils % (auto) 74.3 % (37.0-80.0); Platelet Count (auto) 399 10^3/uL (140-450); Red Blood Cells 4.11 10^6/uL (4.5-5.90); Red Cell Distribution Width 14.1 % (11.8-14.3); White Blood Cell 9.4 10^3/uL (4.4-10.8)
[2020-09-26 06:32] LABS: Potassium 3.7 mmol/L (3.5-5.1)
[2020-09-26 06:40] LABS: Albumin 2.3 g/dL (3.4-5.0); BUN/Creatinine Ratio 27.3; Bilirubin, Total 0.6 mg/dL (0.2-1.0); Calcium 8.6 mg/dL (8.5-10.1); Magnesium 2.1 mg/dL (1.6-2.6); Phosphorus 2.8 mg/dL (2.5-4.90); Total Protein 6.8 g/dL (6.4-8.2)
[2020-09-26 09:00] VITALS: BP 120/73
[2020-09-26] MEDS ORDERED: TPN PER PHARMACY IV NR ×8 (20:00)
[2020-09-26 22:00] VITALS: BP 122/70
[2020-09-27] MEDS: HYDROmorphone HCL 2 MG/ML VL IV PRN ×4 (00:13→21:08)
[2020-09-27] MEDS: ONDANSETRON HCL 4 MG/2 ML VIAL IV PRN ×4 (00:14→21:08)
[2020-09-27] MEDS: KETOROLAC TROMETH 30 MG/ML 1ML VIAL IV PRN ×2 (03:41→17:47)
[2020-09-27 05:00] VITALS: BP 120/65
[2020-09-27] MEDS: ACCU-CHEK COMFORT CURVE STRIP VI SCH ×4 (06:00→17:46)
[2020-09-27] MEDS: InsuLIN REG 1unit/0.01ml Soln (100units/ml) SC SCH ×4 (06:00→17:46)
[2020-09-27] MEDS: PIPERACILLIN-TAZOB 3.375GM 100 ML IV SCH ×4 (06:24→17:46)
[2020-09-27 06:32] LABS: Basophils # (auto) 0 10 ^3/uL (0-0.2); Basophils % (auto) 0.6 % (0.0-2.0); Eosinophils # (auto) 0.6 10 ^3/uL (0-0.8); Eosinophils % (auto) 7.8 % (0.0-7.0); Hematocrit 34.7 % (41.0-53.0); Hemoglobin 11.7 g/dL (13.5-17.5); Lymphocytes % (auto) 13.9 % (10.0-50.0); Mean Corpuscular Hemoglobin 28.6 pg (28.0-32.0); Mean Corpuscular Hgb Conc. 33.6 g/dL (32.0-36.0); Monocytes # (auto) 0.8 10 ^3/uL (0-1.3); Monocytes % (auto) 11.6 % (0.0-12.0); Neutrophils # (auto) 4.7 10 ^3/uL (1.6-8.6); Neutrophils % (auto) 66.1 % (37.0-80.0); Platelet Count (auto) 447 10^3/uL (140-450); Red Blood Cells 4.09 10^6/uL (4.5-5.90); Red Cell Distribution Width 14.1 % (11.8-14.3); White Blood Cell 7.1 10^3/uL (4.4-10.8)
[2020-09-27 09:00] VITALS: BP 114/68
[2020-09-27 10:17] LABS: Albumin 2.4 g/dL (3.4-5.0); Calcium 9.1 mg/dL (8.5-10.1); Magnesium 2.2 mg/dL (1.6-2.6); Potassium 3.8 mmol/L (3.5-5.1)
[2020-09-27 10:21] LABS: BUN/Creatinine Ratio 26.3; Bilirubin, Total 0.5 mg/dL (0.2-1.0); Phosphorus 3.8 mg/dL (2.5-4.90)
[2020-09-27] MEDS ORDERED: ALBUTEROL SULF HFA 90MCG INH 200DOSE IN PRN (11:15)
[2020-09-27 12:31] VITALS: BP 105/62
[2020-09-27] MEDS ORDERED: ALBUTEROL SULF 2.5 MG/0.5ML(0.5%) NEB SOLN NEB PRN (15:30)
[2020-09-27 16:57] VITALS: BP 114/70
[2020-09-27] MEDS ORDERED: TPN PER PHARMACY IV NR ×8 (20:00)
[2020-09-27 22:00] VITALS: BP 119/74
[2020-09-28] MEDS: PIPERACILLIN-TAZOB 3.375GM 100 ML IV SCH ×4 (00:29→18:00)
[2020-09-28] MEDS: ACCU-CHEK COMFORT CURVE STRIP VI SCH ×4 (00:29→18:00)
[2020-09-28 01:48] VITALS: BP 119/74
[2020-09-28] MEDS: KETOROLAC TROMETH 30 MG/ML 1ML VIAL IV PRN ×3 (03:31→21:10)
[2020-09-28] MEDS: HYDROmorphone HCL 2 MG/ML VL IV PRN ×4 (04:24→23:09)
[2020-09-28 05:00] VITALS: BP 115/66
[2020-09-28 06:16] LABS: Albumin 2.4 g/dL (3.4-5.0); Calcium 8.7 mg/dL (8.5-10.1); Magnesium 2.2 mg/dL (1.6-2.6); Potassium 3.8 mmol/L (3.5-5.1)
[2020-09-28 06:20] LABS: BUN/Creatinine Ratio 25.3; Bilirubin, Total 0.6 mg/dL (0.2-1.0); Phosphorus 3.4 mg/dL (2.5-4.90); Total Protein 6.8 g/dL (6.4-8.2)
[2020-09-28] MEDS: InsuLIN REG 1unit/0.01ml Soln (100units/ml) SC SCH ×4 (06:38→18:00)
[2020-09-28 09:00] VITALS: BP 108/61
[2020-09-28] MEDS ORDERED: VENTOLIN INHALER IN PRN (11:15)
[2020-09-28 13:00] VITALS: BP 122/71
[2020-09-28 16:26] VITALS: BP 117/70
[2020-09-28] MEDS ORDERED: TPN PER PHARMACY IV NR ×9 (20:00)
[2020-09-28 21:54] VITALS: BP 124/75
[2020-09-29] MEDS: KETOROLAC TROMETH 30 MG/ML 1ML VIAL IV PRN ×2 (03:11→09:41)
[2020-09-29 05:00] VITALS: BP 123/78
[2020-09-29] MEDS: PIPERACILLIN-TAZOB 3.375GM 100 ML IV SCH ×2 (05:29)
[2020-09-29] MEDS: InsuLIN REG 1unit/0.01ml Soln (100units/ml) SC SCH ×2 (05:29)
[2020-09-29] MEDS: ACCU-CHEK COMFORT CURVE STRIP VI SCH ×2 (05:30)
[2020-09-29] MEDS: HYDROmorphone HCL 2 MG/ML VL IV PRN ×4 (05:30→23:40)
[2020-09-29 07:16] LABS: Calcium 8.4 mg/dL (8.5-10.1); Potassium 4.1 mmol/L (3.5-5.1)
[2020-09-29 07:22] LABS: Albumin 2.5 g/dL (3.4-5.0); BUN/Creatinine Ratio 27.6; Bilirubin, Total 0.4 mg/dL (0.2-1.0); Total Protein 6.8 g/dL (6.4-8.2)
[2020-09-29 08:39] VITALS: BP 108/65
[2020-09-29] MEDS: ONDANSETRON HCL 4 MG/2 ML VIAL IV PRN (11:30)
[2020-09-29 13:00] VITALS: BP 119/70
[2020-09-29] MEDS ORDERED: METOCLOPRAMIDE 10 mg/10ml ORAL soln GT SCH (14:00)
[2020-09-29] MEDS: metroNIDAZOLE 500 MG TAB PO SCH ×2 (14:24→22:08)
[2020-09-29] MEDS ORDERED: METOCLOPRAMIDE HCL 10 MG TAB PO PRN (15:30)
[2020-09-29 16:33] VITALS: BP 125/79
[2020-09-29 20:00] VITALS: BP 121/71
[2020-09-29] MEDS ORDERED: TPN PER PHARMACY IV NR ×9 (20:00)
[2020-09-29 22:00] VITALS: BP 121/71
[2020-09-30 05:00] VITALS: BP 110/70
[2020-09-30] MEDS: HYDROmorphone HCL 2 MG/ML VL IV PRN ×2 (05:39→10:07)
[2020-09-30] MEDS: metroNIDAZOLE 500 MG TAB PO SCH ×2 (06:00→14:20)
[2020-09-30 06:09] LABS: BUN/Creatinine Ratio 23.1; Potassium 4.3 mmol/L (3.5-5.1)
[2020-09-30 06:11] LABS: Eosinophils # (auto) 0.5 10 ^3/uL (0-0.8); Eosinophils % (auto) 6.2 % (0.0-7.0); Hematocrit 35.8 % (41.0-53.0); Hemoglobin 11.9 g/dL (13.5-17.5); Mean Corpuscular Hgb Conc. 33.3 g/dL (32.0-36.0); Monocytes # (auto) 0.5 10 ^3/uL (0-1.3)
[2020-09-30 06:13] LABS: Basophils # (auto) 0 10 ^3/uL (0-0.2); Basophils % (auto) 0.7 % (0.0-2.0); Lymphocytes # (auto) 1.4 10 ^3/uL (0.4-5.4); Lymphocytes % (auto) 19.2 % (10.0-50.0); Mean Corpuscular Hemoglobin 28.1 pg (28.0-32.0); Mean Corpuscular Volume 84.5 fL (80.0-100.0); Monocytes % (auto) 7.3 % (0.0-12.0); Neutrophils # (auto) 4.9 10 ^3/uL (1.6-8.6); Neutrophils % (auto) 66.6 % (37.0-80.0); Nucleated Red Blood Cells % 0.1 %; Platelet Count (auto) 477 10^3/uL (140-450); Red Blood Cells 4.24 10^6/uL (4.5-5.90); Red Cell Distribution Width 14.2 % (11.8-14.3); White Blood Cell 7.4 10^3/uL (4.4-10.8)
[2020-09-30 09:00] VITALS: BP 121/75
[2020-09-30 09:24] VITALS: BP 121/75
[2020-09-30] MEDS ORDERED: levoFLOXacin 250 MG TAB PO SCH (10:00)
[2020-09-30] MEDS ORDERED: FLORASTOR (S. BOULARDII) 250 MG CAP PO SCH (10:00)
== END 2020-09-30 16:45 | disposition home health service (06) | DRG 853 ==
LOC: EDBD 10:46 → ER 10:46 → TELE 10:47 → TELE-WESTW 19:53 → TELE-EAST 09-21 17:04 → TELE-WESTW 09-24 16:49
PROVIDERS: ADMIT Internal Medicine; ATTEND Internal Medicine
PROC: 0DBN0ZZ Excision of Sigmoid Colon, Open Approach (ICD-10-PCS; principal; 2020-09-23 11:26)
DX: A41.9 Sepsis, unspecified organism (principal); K65.1 Peritoneal abscess; U07.1 COVID-19; K57.32 Diverticulitis of large intestine without perforation or abscess without bleeding; E66.01 Morbid (severe) obesity due to excess calories; Z91.041 Radiographic dye allergy status; Z82.49 Family history of ischemic heart disease and other diseases of the circulatory system; Z68.30 Body mass index [BMI] 30.0-30.9, adult
CPT/HCPCS: 36415; 71045; 74176; 74177; 80048; 80053; 81001; 82040; 82962; 83605; 83735; 84100; 84478; 84484; 85007; 85025; 85027; 85610; 85730; 86850; 86900; 86901; 87040; 87081; 87426; 93005; 96365; 96375; 96376; 97163; 97530; G0378; J0690; J1815; J1885; J2001; J2250; J2405; J2543; J2704; J3480; J7131